=== PATIENT | male | born 1985 | race African-American/Black ===

== ENCOUNTER 2025-05-07 13:15 | Inpatient (IN) | payer MEDICAID ==
[~2025-05-07] VITALS: Ht 180.3 cm; Wt 97.6 kg
[2025-05-07 14:02] LABS: BASOPHILS % 0.8 % (0.0-2.0); EOSINOPHILS % 0.3 % (0.0-5.0); HEMATOCRIT. 41.3 % (42.0-52.0); HEMOGLOBIN. 13.9 g/dL (14.0-18.0); LYMPHOCYTES % 32.4 % (20.0-50.0); MEAN PLATELET VOLUME 9.7 fl (7.4-10.4); MONOCYTES % 9.5 % (2.0-8.0); NEUTROPHILS % 57.0 % (40.0-76.0); PLATELET 159 x1000/uL (130-400); RED BLOOD CELL COUNT 4.96 mill/uL (4.7-6.1); RED CELL DISTRIBUTION WIDTH 14.6 % (11.6-14.6)
[2025-05-07] MEDS: METOPROLOL TARTRATE 5MG/5ML VIAL IV ONE (14:08)
[2025-05-07 14:15] LABS: CREATININE 1.8 mg/dL (0.6-1.3); ETHANOL BLOOD < 10 mg/dL (<10); UREA NITROGEN BLOOD 20 mg/dL (9-23)
[2025-05-07 14:16] LABS: TROPONIN I HIGH SENSITIVITY 13 ng/L (3.0-53)
[2025-05-07] MEDS: LOSARTAN 50 MG TABLET PO ONE (15:14)
[2025-05-07] MEDS: HYDRALAZINE 20MG/ML VIAL IV ONE ×2 (15:15→18:10)
[2025-05-07] MEDS ORDERED: CLONIDINE 0.1MG TABLET PO PRN (19:30)
[2025-05-07] MEDS: CLONIDINE 0.1MG TABLET PO PRN (19:47)
[2025-05-07 19:55] VITALS: BP 174/101; PULSE 99; RESP 18; TEMP 36.6404
[2025-05-07 20:00] VITALS: BP 185/123; PULSE 104; RESP 19; TEMP 36.4; O2SAT 100
[2025-05-07] MEDS: METOPROLOL TARTRATE 50MG TABLET PO SCH (20:58)
[2025-05-07] MEDS: HYDRALAZINE 20MG/ML VIAL IV PRN (20:59)
[2025-05-07] MEDS ORDERED: NALOXONE HCL 0.4MG/ML VIAL IV PRN (22:30)
[2025-05-07] MEDS ORDERED: METO-539 PO (23:24)
[2025-05-07] MEDS ORDERED: ACETAMINOPHEN 650MG/20.3ML UDC PO PRN (23:30)
[2025-05-08] VITALS: BP 156/86; PULSE 99; RESP 17; TEMP 36.6; O2SAT 99
[2025-05-08 04:00] VITALS: BP 145/95; PULSE 69; RESP 18; TEMP 36.9; O2SAT 98
[2025-05-08 07:33] LABS: CLARITY URINE CLEAR (CLEAR); COLOR URINE YELLOW (YELLOW); GLUCOSE URINE NEGATIVE (NEGATIVE); KETONES URINE 1+ (NEGATIVE); LEUKOCYTE ESTERASE URINE NEGATIVE (NEGATIVE); NITRITE URINE NEGATIVE (NEGATIVE); OCCULT BLOOD URINE NEGATIVE (NEGATIVE); PH URINE 6.5 (4.5-8.0); PROTEIN URINE TRACE (NEGATIVE); SPECIFIC GRAVITY URINE 1.021 (1.005-1.030); UROBILINOGEN URINE 0.2 E.U./dL (0.2-1.0)
[2025-05-08 08:00] VITALS: BP 141/98; PULSE 69; RESP 16; TEMP 36.7; O2SAT 97
[2025-05-08 08:04] LABS: *AMPHETAMINES SCREEN URINE NEGATIVE (NEGATIVE)
[2025-05-08 08:05] LABS: *BARBITURATES SCREEN URINE NEGATIVE (NEGATIVE); *BENZODIAZEPINES SCREEN URINE NEGATIVE (NEGATIVE); *COCAINE SCREEN URINE NEGATIVE (NEGATIVE); CANNABINOID URINE SCREEN NEGATIVE (NEGATIVE); ECSTASY MDMA SCREEN URINE NEGATIVE (NEGATIVE); METHADONE URINE SCREEN NEGATIVE (NEGATIVE); OPIATES URINE SCREEN NEGATIVE (NEGATIVE); PHENCYCLIDINE URINE SCREEN NEGATIVE (NEGATIVE)
[2025-05-08 08:12] LABS: SQUAMOUS EPITHELIAL CELL URINE RARE /lpf (RARE/1+); WBC URINE 0-2 /hpf (0-2)
[2025-05-08 08:13] LABS: BACTERIA URINE NONE SEEN; RBC URINE 0-2 /hpf (0-2)
[2025-05-08] MEDS ORDERED: AMLODIPINE 10MG TABLET PO SCH (09:00)
[2025-05-08] MEDS: HYDRALAZINE HCL 100MG TABLET PO SCH (09:21)
[2025-05-08] MEDS: AMLODIPINE 10MG TABLET PO SCH (09:22)
[2025-05-08 09:59] LABS: BASOPHILS % 0.2 % (0.0-2.0); CREATININE 1.7 mg/dL (0.6-1.3); EOSINOPHILS % 0.2 % (0.0-5.0); HEMATOCRIT. 41.1 % (42.0-52.0); HEMOGLOBIN. 13.9 g/dL (14.0-18.0); LYMPHOCYTES % 32.8 % (20.0-50.0); MEAN PLATELET VOLUME 10.7 fl (7.4-10.4); MONOCYTES % 10.0 % (2.0-8.0); NEUTROPHILS % 56.8 % (40.0-76.0); PLATELET 171 x1000/uL (130-400); RED BLOOD CELL COUNT 4.91 mill/uL (4.7-6.1); RED CELL DISTRIBUTION WIDTH 14.9 % (11.6-14.6); UREA NITROGEN BLOOD 18.0 mg/dL (9-23)
[2025-05-08 12:00] VITALS: BP 156/108; PULSE 80; RESP 18; TEMP 36.7; O2SAT 99
[2025-05-08] MEDS ORDERED: LOSA50TA41 PO ×2 (14:26→15:26)
[2025-05-08] MEDS ORDERED: ONDANSETRON HCL 4MG/2ML INJ IV PRN (14:30)
[2025-05-08] MEDS ORDERED: ACETAMINOPHEN 325MG TABLET PO PRN (14:30)
[2025-05-08] MEDS: HYDROCODONE/ACETAMINOPHEN 5/325MG TABLET PO PRN (14:32)
[2025-05-08] MEDS ORDERED: AMLO10TA80 MT ×2 (15:26→16:43)
[2025-05-08] MEDS ORDERED: METO-539 PO (15:26)
[2025-05-08] MEDS ORDERED: HYDR100T11 MT ×2 (15:26→16:43)
[2025-05-08 16:00] VITALS: BP 121/76; PULSE 83; RESP 16; TEMP 36.6; O2SAT 97
[2025-05-08] MEDS ORDERED: METO-539 MT (16:43)
[2025-05-08] MEDS ORDERED: LOSA50TA41 MT (16:43)
[2025-05-08 19:35] VITALS: BP 121/76; PULSE 80; TEMP 98; O2SAT 100
[2025-05-08] MEDS ORDERED: METOPROLOL TARTRATE 50MG TABLET PO SCH (21:00)
[2025-05-09] MEDS ORDERED: PANTOPRAZOLE SODIUM 40 MG/VIAL IV SCH (09:00)
[2025-05-09] MEDS ORDERED: LOSARTAN 50 MG TABLET PO SCH (09:00)
== END 2025-05-08 19:49 | disposition home or self-care (01) | DRG 199 ==
LOC: ER 13:15 → EDBEDREQ 17:36 → EDBEDREQTM 17:36 → 6WST 18:36
PROVIDERS: ADMIT Internal Medicine; ATTEND Internal Medicine
DX: I16.0 Hypertensive urgency (principal); D64.9 Anemia, unspecified; F41.9 Anxiety disorder, unspecified; I10 Essential (primary) hypertension; Z79.899 Other long term (current) drug therapy; Z91.148 Patient's other noncompliance with medication regimen for other reason
CPT/HCPCS: 36415; 71045; 80048; 80305; 80320; 81003; 84484; 85025; 85379; 93005; 99291; G0378; J0360; J3490; G0480